=== PATIENT | female | born 1980 | race Caucasian/White ===

== ENCOUNTER → 2020-10-22 02:14 | Outpatient (CLI) | payer BC, SELFPAY ==
[2020-10-22 23:32] LABS: SARS-CoV-2 RNA PCR Negative
== END ==
PROVIDERS: PCP Emergency Medicine; Visit Provider Obstetrics & Gynecology
DX: Z01.812 Encounter for preprocedural laboratory examination (principal); Z20.822 Contact with and (suspected) exposure to COVID-19
CPT/HCPCS: C9803; U0003; U0005

== ENCOUNTER 2020-10-25 00:39 | Day surgery (SDC) | payer BC, SELFPAY ==
[2020-10-15 13:03] VITALS: BMI 31.1
--- NOTE | 2020-10-24 14:28 | P.PNAN_ITS ---
Anes - Initial Pre Proc Eval Procedure: Operation Date: 10/25/20 11:00 Proposed Procedures p Hysteroscopy Dilation and Curettage - Sharath Chavez MD Date/Time: 10/24/20 14:28 Surgeon: Sharath Chavez MD Pre Op Diagnosis: abnormal uterine bleeding Patient Data Age: 40 Gender: F Height: 1.65 m Weight: 84.8 kg Allergies Allergy/AdvReac Type Severity Reaction Status Date / Time vancomycin Allergy Intermediate shay Verified 10/15/20 13:00 levon syndrome Home Medications Medication Instructions Recorded Confirmed Type ibuprofen 800 mg PO PRN 10/15/20 History Patient hx anesthesia problems: none Family hx anesthesia problems: none [facility] Past Medical History Medical History (Updated 05/14/20 @ 09:52 by DELBERT Ortiz) Bloody stools COVID-19 Depressed Hyperbilirubinemia Obesity PCOS (polycystic ovarian syndrome) Vitamin B12 deficiency Vitamin D deficiency Family History Family History Other Diabetes mellitus Social History Social History Smoking status: Never smoker Alcohol intake: never Substance use: never Substance use type: does not use Living arrangements: with family Gender identity (if verbalized by the patient): Female Sexual Orientation (if Verbalized by the Patient): Straight or Heterosexual Spiritual care concerns: No Anes - Eval Final PreProcedure Day of Procedure 10/24/20 14:28 Patient weight: obese Heart: regular rate and rhythm Lungs: clear to auscultation and normal air movement Airway: Mallampati scale class II Neurological: alert and oriented Last oral intake: >/= 8 hours ASA classification: II Emergent: no Anesthetic plan: proceed Anesthesia type and monitoring: general GIVS and LMA Informed Consent: The patient's anesthetic plan and its attendant risks and benefits were discussed with the patient/family/POA. Questions were solicited and answers provided to the satisfaction of the patient/family/POA.
[2020-10-25 09:06] VITALS: BP 126/73; PULSE 78; RESP 18; TEMP 36.5; O2SAT 99
[2020-10-25] MEDS: LACTATED RINGERS 1,000 ML 30 ML IV CONT ×2 (09:30→12:31)
[2020-10-25] MEDS: ACETAMINOPHEN 500 MG TABLET 1000 MG PO (09:34)
--- NOTE | 2020-10-25 11:53 | WPDHPUPDATE1 ---
History and Physical Update Update Date/Time: 10/25/20 11:53 History and Physical has been reviewed, including an updated exam of the patient. There are NO changes in the patient's condition. Risks, benefits, and alternatives have been discussed and questions answered. Patient agrees to proceed with procedure.
[2020-10-25 12:31] VITALS: BP 111/68; PULSE 105; RESP 16; O2SAT 95
[2020-10-25 12:50] VITALS: BP 132/74; PULSE 72; RESP 16
--- NOTE | 2020-10-25 12:58 | W.PM.PROC2 ---
Procedure Note - Detailed Date of Procedure 10/25/20 Pre-op Diagnosis abnormal uterine bleeding Post-op Diagnosis same Procedure Performed Hysteroscopy D&C Surgeon Sharath Chavez MD Anesthesia MAC Indications abnormal uterine bleeding Findings Mostly obliterated intrauterine cavity with scar tissue. The Endo atrial cavity was not well defined. The proximal cervix was scarred. Description of Procedure the patient was taken the operating room. She was prepped and draped in the dorsal lithotomy position after induction of mac anesthesia. A speculum was placed in the vagina. The cervix was grasped with a tenaculum. The cervix was dilated about 1 cm. The hysteroscope was inserted. It was difficult to get the hysteroscope into the intrauterine cavity. Appeared to be mostly obliterated and the cervix was scarred proximally. The intrauterine cavity and endocervix were evaluated. Hysteroscope was withdrawn. A medium-size curette was used to curettage all the surfaces were within the endometrial cavity. the sample was collected on Telfa and sent to pathology. The hysteroscope was reinserted and the above findings were noted. Patient tolerated the procedure well. The speculum and tenaculum were removed. She was taken recovery room in stable condition. Sponge lap and needle counts were correct x2. Estimated Blood Loss 40 Drains No Packing No Pathology yes Complications No immediate complications Condition stable Disposition PACU
[2020-10-25 13:15] VITALS: BP 117/80; PULSE 67; RESP 16
== END 2020-10-25 13:18 | disposition home or self-care (01) ==
PROVIDERS: PCP Family Medicine Sports Medicine; Visit Provider Obstetrics & Gynecology
PROC: 0U5B8ZZ Destruction of Endometrium, Via Natural or Artificial Opening Endoscopic (ICD-10-PCS; CPT 58563; principal; 2020-10-25 11:00)
DX: N93.9 Abnormal uterine and vaginal bleeding, unspecified (principal); N85.8 Other specified noninflammatory disorders of uterus; E66.9 Obesity, unspecified; Z68.32 Body mass index [BMI] 32.0-32.9, adult
CPT/HCPCS: 58558; 88305; A9270; J2250; J2704; J3010; J7120

== ENCOUNTER → 2022-11-16 13:24 | Outpatient (CLI) | payer BC, SELFPAY ==
--- NOTE | ~2022-11-16 | MM_ITS ---
EXAMINATION: MM screening [place] BI w [facility] HISTORY: Screening mammogram TECHNIQUE: Craniocaudal and mediolateral oblique 3-D tomosynthesis images were obtained and synthetic 2-D images were generated. CAD analysis was submitted and interpreted. COMPARISON: None, baseline BREAST PARENCHYMAL COMPOSITION: There are scattered areas of fibroglandular density. FINDINGS: No suspicious mass, calcification, or architectural distortion are identified in either parminder ast to suggest malignancy. IMPRESSION: 1. No mammographic evidence of malignancy. 2. Recommend routine screening mammography in one year. BI-RADS Category 1: Negative Reviewed, dictated and finalized at location [facility].
== END ==
PROVIDERS: PCP Family Medicine Sports Medicine; Visit Provider Nurse Practitioner
DX: Z12.31 Encounter for screening mammogram for malignant neoplasm of breast (principal)
CPT/HCPCS: 77063; 77067

== ENCOUNTER 2024-06-20 12:46 | Outpatient (CLI) | payer BC, SELFPAY ==
--- NOTE | ~2024-06-20 | US_ITS ---
Pelvic ultrasound. Clinical History: Leiomyoma Technique: Realtime transabdominal and transvaginal scanning of the pelvis was performed. Color flow Doppler and Doppler spectral analysis were performed. Findings: The uterus is anteverted, and measures 10.2 x 5.9 x 7.0 cm. The endometrial stripe has a t hickness of 5 mm. Probable small amount of fluid in the endometrial cavitary. Anterior wall intramura l fibroid measures 1.4 cm in diameter.. The right ovary measures 2.6 x 1.8 x 1.8 cm. No significant right ovarian or adnexal mass is seen. The left ovary measures 3.0 x 2.2 x 2.5 cm. No significant left ovarian or adnexal mass is seen. There is no evidence of free fluid in the cul de sac. Impression: Probable small anterior intramural fibroid. Small amount of fluid present in the endometrial cavity. Reviewed, dictated and finalized at [facility]. [employer] Impression: Probable small anterior intramural fibroid. Small amount of fluid present in the endometrial cavity.
== END 2024-06-20 12:47 | disposition home or self-care (01) ==
LOC: MICIMG 12:47
PROVIDERS: PCP Family Medicine Sports Medicine; Visit Provider Student in an Organized Health Care Education/Training Program
DX: D25.9 Leiomyoma of uterus, unspecified (principal)
CPT/HCPCS: 76830; 76856